=== PATIENT | female | born 1955 | race Caucasian/White ===

== ENCOUNTER 2021-09-19 19:06 | Observation (INO) | payer OTHER, SELFPAY ==
[2021-09-19] VITALS (8 sets, daily range): BP systolic 148–200; BP diastolic 86–106; PULSE 65–97; RESP 14–20; TEMP 36.6–36.7; O2SAT 95–99; BMI 32.3; BMI 33.2
--- NOTE | 2021-09-19 19:27 | XR_ITS ---
PROCEDURE INFORMATION: Exam: XR Chest Exam date and time: 09/19/2021 7:27 PM Age: 65 years old Clinical indication: Sternal or substernal pain; Prior surgery; Surgery date: 6+ months; Surgery type: Right breast lumpectomy; Additional info: Chest pain TECHNIQUE: Imaging protocol: XR of the chest. Views: 2 views. COMPARISON: No relevant prior studies available. FINDINGS: Lungs: Normal. Pleural spaces: Unremarkable. No pleural effusion. No pneumothorax. Heart/Mediastinum: Normal. Bones/joints: Multilevel thoracic spine degenerative disc space narrowing and osteophyte formation. IMPRESSION: No acute cardiopulmonary abnormality.
--- NOTE | 2021-09-19 19:27 | ECG_ITS ---
APPROVED REPORT Exam: Resting ECG HR:83 bpm ECG Measurements Heart Rate 83 AXES NJ 157 P 50 QRSd 98 QRS 22 QT 364 T 56 QTc 404 Conclusion SINUS RHYTHM NORMAL ECG UNCONFIRMED REPORT Electronically signed by : Jerrod Sands MD 09/22/2021 21:09:23
[2021-09-19 19:35] LABS: Basophils # 0.1 K/mm3 (0-0.2); Basophils % 1.8 % (0.1-2.0); Eosinophils # 0.1 K/mm3 (0.0-0.4); Eosinophils % 0.9 % (0.1-12.0); Hematocrit 47.4 % (37.0-47.0); Hemoglobin 14.9 g/dL (12.2-16.2); Lymphocytes # 2.1 K/mm3 (0.7-4.5); Lymphocytes % 37.3 % (10-50); Mean Corpuscular HGB Conc 31.5 g/dL (31.8-35.4); Mean Corpuscular Hemoglobin 31.7 pg (27.0-31.2); Mean Corpuscular Volume 100.6 fl (81-99); Mean Platelet Volume 8.3 fl (7.4-10.4); Monocytes # 0.3 K/mm3 (0.1-1.0); Monocytes % 5.2 % (1.7-9.3); Neutrophils # 3.1 K/mm3 (1.8-7.8); Neutrophils % 54.8 % (37.0-80.0); Platelet Count 246 K/mm3 (142-424); Red Blood Count 4.71 M/mm3 (4.20-5.40); Red Cell Distribution Width 13.1 % (11.5-17.5); White Blood Count 5.7 K/mm3 (4.8-10.8)
[2021-09-19 19:47] LABS: Alanine Aminotransferase 26 U/L (12-78); Albumin Level 4.7 g/dl (3.5-5.0); Alkaline Phosphatase 133 U/L (38-126); Aspartate Amino Transferase 32 U/L (14-36); Bilirubin,Direct 0.2 mg/dl (0.0-0.4); Bilirubin,Indirect 0.2 mg/dL (0.0-0.9); Bilirubin,Total 0.4 mg/dl (0.2-1.3); Bilirubin,Unconjugated 0.2 mg/dL (0.0-1.1); Blood Urea Nitrogen 28 mg/dl (7-17); Calcium 9.4 mg/dl (8.4-10.2); Carbon Dioxide 27 mmol/L (22.0-30.0); Chloride 105 mmol/L (98-107); Creatinine Clearance Estimated 72 mL/min (50-200); Estimated Glomerular Filt Rate 101 ml/min (>60); GFR (African American) 122 ML/MIN (>60); Glucose 116 mg/dl (74-100); Sodium 141 mmol/L (136-145); Total Protein,Serum 7.4 g/dl (6.3-8.2)
[2021-09-19 19:52] LABS: C-Reactive Protein 2.7 mg/L (0-4)
[2021-09-19 20:02] LABS: NT Pro Brain Natriuretic Pep. 53.7 pg/mL (0-125)
[2021-09-19 20:05] LABS: Erythrocyte Sedimentation Rate 10 mm/hr (0-30)
[2021-09-19 20:07] LABS: Procalcitonin < 0.030 ng/mL (0.0-2.0); Troponin I < 0.01 ng/ml (0.00-0.034)
--- NOTE | 2021-09-19 20:11 | HMH.EDCP ---
ED Disposition Clinical Impression: Hypertensive emergency, Obesity (BMI 30-39.9) Chest pain Qualifiers: Chest pain type: other chest pain Qualified Code(s): R07.89 - Other chest pain Disposition: Admitted As Inpatient Condition on Discharge: Good Referrals: Provider,Referral, [Primary Care Provider] - - Critical Care Critical Care Time: No Attestation: On 09/19/21, the high probability of a clinically significant, sudden or life threatening deterioration of the following system(s) required my full and direct attention, intervention and personal management. The time I documented below is in addition to time spent performing reported procedures but includes the following listed in this critical care notation. Medical Decision Making - Medical Records Medical records reviewed: Yes: I reviewed the patient's medical records. - Toribio Inquiry Pt receiving controlled substance: No Vital Signs: 09/19/21 19:13 Temperature 98.1 F Temperature Source Oral Pulse Rate [Right Radial] 89 Respiratory Rate 20 Blood Pressure [Right Arm] 200/106 H Blood Pressure Mean [Right Arm] 137 Blood Pressure Source [Right Arm] Manual Cuff/ Auscultation 02 Sat by Pulse Oximetry 98 Oxygen Delivery Method Room Air - Lab Data Lab results reviewed: Yes: I reviewed the patient's lab results. Lab Results 09/19/21 19:23: WBC 5.7, RBC 4.71, Hgb 14.9, Hct 47.4 H, MCV 100.6 H, MCH 31.7 H, MCHC 31.5 L, RDW 13.1, Plt Count 246, MPV 8.3, Neut % (Auto) 54.8, Lymph % (Auto) 37.3, [place] % (Auto) 5.2, Eos % (Auto) 0.9, Baso % (Auto) 1.8, Neut # (Auto) 3.1, Lymph # (Auto) 2.1, [place] # (Auto) 0.3, Eos # (Auto) 0.1, Baso # (Auto) 0.1, ESR 10 09/19/21 19:23: Sodium 141, Potassium 4.0, Chloride 105, Carbon Dioxide 27, Anion Gap 13.0, BUN 28 H, Creatinine 0.60, Estimated Creat Clear 72, Estimated GFR 101, Est GFR ( Amer) 122, Glucose 116 H, Calcium 9.4, Total Bilirubin 0.4, Direct Bilirubin 0.2, Conjugated Bilirubin 0.0, Indirect Bilirubin 0.2, Unconjugated Bilirubin 0.2, AST 32, ALT 26, Alkaline Phosphatase 133 H, Troponin I < 0.01, C-Reactive Protein 2.7, NT-Pro-B Natriuret Pep 53.7, Total Protein 7.4, Albumin 4.7, Procalcitonin < 0.030 09/19/21 19:27: Magnesium 2.0 Result diagrams: 09/19/21 19:23 09/19/21 19:23 Orders (Tests/Meds): ED MEDICATIONS Discontinued Medications Generic Name Dose Route Start Last Admin Trade Name Rylee PRN Reason Stop Dose Admin Aspirin 324 mg 09/19/21 19:26 09/19/21 19:26 Aspirin 81mg Chewable Tablet PO 09/19/21 19:27 324 mg ONCE ONE Administration Clonidine HCl 0.1 mg 09/19/21 20:18 09/19/21 20:19 Clonidine 0.1mg Tablet PO 09/19/21 20:19 0.1 mg ONCE ONE Administration Nitroglycerin 0.4 mg 09/19/21 19:18 09/19/21 19:18 Nitroglycerin 0.4mg Sl Tablet SL 09/19/21 19:19 0.4 mg ONCE ONE Administration ORDERS Category Date Time Status XR chest 2V Stat Exams 09/19/21 19:27 Taken Rapid PCR Covid and Flu A/B Stat Lab 09/19/21 20:20 Ordered Troponin I Q3H Lab 09/19/21 22:30 Ordered Troponin I Q3H Lab 09/20/21 01:30 Ordered - Radiology Data #1 Image(s): Chest Image Reviewed: Yes I have reviewed radiologist's interpretation Preliminary Findings: Normal/NAD - ECG Data Tracing #1 Normal Sinus Rhythm: Yes Ischemic changes: non-specific ST-T wave changes - Physician Consults Physician Consulted: radha Reason -: Admission Chest Pain HPI - General Chief Complaint: Chest Pain Stated Complaint: Chest Pain Time Seen by Provider: 09/19/21 20:00 Mode of Arrival: Ambulatory Source of Information: Patient, Medical Record Limitations: No Limitations Description of Symptoms (Recalled from ER Triage Doc. by RN): Pt reports intermittent left shoulder pain for a week. This moring she was awaken at 3am with chest and jaw pain. She took a clonidine with no relief. She says the pain is a dull, fullness . She rates her pain a 6 out of 10. She says he is
[2021-09-19 20:29] LABS: Coronavirus 19, PCR Not Detected (NotDetected); Influenza A, PCR Not Detected (NotDetected); Influenza B, PCR Not Detected (NotDetected)
[2021-09-19 20:51] LABS: Cholesterol 288 mg/dl (140-200); HDL Cholesterol 97 mg/dl (40-60); Triglycerides 152 mg/dl (30-150); VLDL Cholesterol 30 mg/dL (0-40)
[2021-09-19 21:02] LABS: Direct LDL Cholesterol 142.25 mg/dL (100-129); NT Pro Brain Natriuretic Pep. 53.8 pg/mL (0-125)
--- NOTE | 2021-09-19 22:47 | PC.NURSE ---
Report called to GAIL Olsen at this time
[2021-09-19 22:52] LABS: Troponin I < 0.01 ng/ml (0.00-0.034)
--- NOTE | 2021-09-19 23:15 | PC.NURSE ---
PT ARRIVED TO FLOOR VIA W/C FROM ED WITH STAFF @ [id number]
[2021-09-20] VITALS: PULSE 60
[2021-09-20 01:37] LABS: Troponin I 0.01 ng/ml (0.00-0.034)
[2021-09-20 04:00] VITALS: BP 128/67; PULSE 60; PULSE 64; RESP 21; TEMP 36.6; O2SAT 97
[2021-09-20 06:41] LABS: Eosinophils # 0.1 K/mm3 (0.0-0.4); Mean Corpuscular Volume 102.6 fl (81-99); Monocytes # 0.3 K/mm3 (0.1-1.0)
--- NOTE | 2021-09-20 06:53 | PC.NURSE ---
Pt admitted for chest/shoulder/jaw pain. Per pt, she has been having intermittent shoulder pain for 3 weeks. Pain woke her up the morning of 09/19 at 0300 in the AM. Pain began to radiate to chest and jaw. Pts serial troponins have been negative. Pt c/o aching in her chest when arrived to floor. Nitro paste in place on R chest. No changes in EKG monitoring. No other accompanying symptoms or radiation of pain. Medicated per OCT, no complaints of pain since. Pt has been greater than 95% on RA. VSS. Pt has slept well this shift and has been NPO since midnight. Cardiology consult for this AM.
[2021-09-20 06:58] LABS: Basophils # 0.1 K/mm3 (0-0.2); Basophils % 1.7 % (0.1-2.0); Hematocrit 40.6 % (37.0-47.0); Mean Corpuscular HGB Conc 31.5 g/dL (31.8-35.4); Mean Corpuscular Hemoglobin 32.3 pg (27.0-31.2); Monocytes % 6.8 % (1.7-9.3); Neutrophils # 1.9 K/mm3 (1.8-7.8); Neutrophils % 44.4 % (37.0-80.0); Platelet Count 219 K/mm3 (142-424); Red Blood Count 3.95 M/mm3 (4.20-5.40); Red Cell Distribution Width 13.1 % (11.5-17.5); White Blood Count 4.4 K/mm3 (4.8-10.8)
[2021-09-20 07:01] LABS: Chloride 110 mmol/L (98-107); Sodium 137 mmol/L (136-145)
[2021-09-20 07:04] LABS: Blood Urea Nitrogen 20 mg/dl (7-17); Creatinine Clearance Estimated 73 mL/min (50-200); Estimated Glomerular Filt Rate 101 ml/min (>60); GFR (African American) 122 ML/MIN (>60)
[2021-09-20 07:05] LABS: Calcium 7.7 mg/dl (8.4-10.2); Carbon Dioxide 26 mmol/L (22.0-30.0); Glucose 98 mg/dl (74-100); Magnesium 2.1 mg/dl (1.6-2.3)
--- NOTE | 2021-09-20 07:15 | P.CONPHA_ITS ---
[facility] VTE Monitoring - Patient Demographics Admission date: 09/19/21 Report Date: 09/20/21 Time: 07:15 Allergies/Adverse Reactions: Patient Allergies epinephrine Adverse Reaction (Verified 08/12/21 13:16) High Blood Pressure hydralazine Adverse Reaction (Verified 09/20/21 01:38) Palpitations Height: 1.57 m Weight: 81.873 kg Patient Problems: Current Active Problems Chest pain (Acute) Hypertensive emergency (Acute) Obesity (BMI 30-39.9) (Acute) - VTE Risk Labs: VTE Related Lab Results Hgb 14.9 g/dL (12.2-16.2) 09/19/21 19:23 Hct 47.4 % (37.0-47.0) H 09/19/21 19:23 Plt Count 246 K/mm3 (142-424) 09/19/21 19:23 BUN 20 mg/dl (7-17) H D 09/20/21 05:54 Creatinine 0.60 mg/dl (0.52-1.04) 09/20/21 05:54 Estimated Creat Clear 73 mL/min (50-200) 09/20/21 05:54 VTE Score: 4 VTE Risk Level: Low Risk - Prophylaxis VTE Prophylaxis Ordered?: Yes Types of VTE Prophylaxis: TEDS Knee High Location of Applied Device: Bilateral Lower Extremeties
[2021-09-20 07:25] LABS: Hemoglobin 12.8 g/dL (12.2-16.2)
[2021-09-20 08:00] VITALS: BP 150/83; PULSE 70; PULSE 72; RESP 18; TEMP 36.7; O2SAT 95
--- NOTE | 2021-09-20 08:00 | CA_ITS ---
APPROVED REPORT EXAM: Comprehensive 2D, Doppler, and color-flow Echocardiogram Dot Compliance Specialist: BARRY Berry, RVS Ht: 5 ft 2 in Wt: 177lbs BSA: 1.82 BP: 128/67 mmHg Indications: CP,HTN,ATYPICAL CP/JAW PAIN Echo Enhancing Agent Comments: Poor acoustic windows throughout exam 2D Dimensions IVSd 1.00 cm LVEF (Visual) 73.10 % PWd 0.91 cm LA Volume 63.90 mL LVDd 5.29 cm LA Volume Index 35.30 mL/m2 (M/F) 16-34 LVDs 3.04 cm Left Atrium 2.90 cm LVOT 1.95 cm (M/F) 1.5-2.5 M-Mode Dimensions LA Diam 3.39 cm (1.9-4.0) LVDd 5.47 cm (3.5-5.7) Ao Diam 3.13 cm (2.0-3.7) LVDs 3.15 cm (3.5-5.7) EF (Teich) 72.90% EPSs 0.30 cm FS 42.40% EDV (Teich) 145.60 mL TAPSE 2.81 (<1.7) ESV (Teich) 39.40 mL LV Diastology E Decel Time 273.00 (160-240 msec) E/A Ratio 0.80 MED E' 6.60 (< 7 cm/sec) MED A' 14.50 cm/s E'/MED E' Ratio 10.18 (>14) LAT E' 7.50 (<10 cm/sec) LAT A' 12.30 cm/s E/LAT E' Ratio 8.96 (>14) Aortic Valve LVOT Max 121.00 (70-110 cm/s) LVOT VTI 30.12 cm AoV Peak Young. 146.00 (50-130 cm/s) AO Peak GR. 8.60 mmHg AO Mean GR. 4.80 (<5 mmHg) AO VTI 35.65 (18-25 cm) IRAJ (VTI) 2.52 (2.5-4.5 cm2) Mitral Valve MV A Velocity 84.00 (40-130 cm/s) E/A Ratio 0.80 MV Decel. Time 273.00 (160-240 ms) Pulmonary Valve PV Peak Velocity 74.00 (50-150 cm/s) Tricuspid Valve TR P. Velocity 18.00 cm/s Left Ventricle Left atrium is mildly enlarged, left ventricle is normal size, mild concentric left ventricular hypertrophy, visually estimated ejection fraction 55% with no regional wall motion abnormality, grade 1 diastolic dysfunction seen without tissue Doppler evidence of raise left atrial pressure. Right Ventricle Right atrium and right ventricle mildly enlarged with normal contractility. Aortic Valve Aortic valve is minimally thickened and fibrosed, there is no aortic stenosis or aortic insufficiency. Mitral Valve Mitral valve grossly normal, there is trace mitral regurgitation. Tricuspid Valve Tricuspid valve grossly normal, there is trace tricuspid regurgitation, tricuspid regurgitation jet velocity is inadequate for calculation of the right ventricular systolic pressure. Pulmonic Valve Pulmonic valve is poorly visualized. Aortic root is normal size. Great Vessels Aortic root is normal size. Inferior vena cava is poorly visualized. Pericardium No significant pericardial effusion noted. Conclusion #1. Mild biatrial enlargement, normal left ventricular size, mild concentric left ventricular hypertrophy, visually estimated ejection fraction 55% with no regional wall motion abnormality, grade 1 diastolic dysfunction seen without tissue Doppler evidence of raise left atrial pressure. #2. Trace mitral and tricuspid regurgitation. #3. No significant pericardial effusion. #4. Inferior vena cava is poorly visualized. Electronically signed by : Tj Edwards MD 09/20/2021 17:00:04
--- NOTE | 2021-09-20 08:10 | PC.NURSE ---
notified cardiology of consult
--- NOTE | 2021-09-20 08:40 | HMH.HP ---
*Admission Date: 09/19/21 <Maile Obrien - 09/20/21 08:48> *Chief complaint: Chest pain with shortness of breath <Maile Obrien - 09/20/21 08:48> *History of present illness: Pt reports intermittent left shoulder pain for a week. This moring she was awaken at 3am with chest and jaw pain. She took a clonidine with no relief. She says the pain is a dull, fullness . She rates her pain a 6 out of 10. She says he is somewhat SOA. She denies N/V/D, cough, dizziness, weakness, fevers, or diaphoresis. Via above per ER documentation. History of present illness: This is a 65-year-old female who presented to the emergency department with complaints of chest pain. The patient reports that she woke up at 3 AM on the morning of admission with chest pain and jaw pain. She states that this is a dull full sensation in the center of her chest and it radiates to her jaw. She also reports having intermittent left shoulder pain for approximately a week prior to admission. She states that her chest pain is a 6 out of 10 in intensity. She is short of breath with the chest pain and the shortness of breath wakes her from her sleep. She also has some nausea with her chest pain. She denies any diaphoresis. The patient states that her symptoms started approximately 2 to 3 weeks ago. She also reports having a malignantly elevated blood pressure for quite some time. The patient states that she has been on multiple medications which caused side effects and nothing is really been helping to control her blood pressure. She is currently taking clonidine for her blood pressure. She does report having a heart cath approximately 8 to 10 years ago that she reports was normal. The above per cardiology. In the emergency room on admission blood pressure was 200/106. She was given 324 mg of aspirin, 0.1 mg of clonidine, and nitroglycerin sublingually. Troponin I's have been negative x3, normal electrolytes, and BUN of 28 and creatinine 0.6. Cholesterol numbers show triglycerides of 152, total cholesterol 288, LDL of 142.25, and HDL of 97. Chest x-ray showed no acute cardiopulmonary abnormality. Echo results are pending. She was then admitted with a cardiology consult. This a.m. patient is comfortable. She has been sleeping. She states her chest is not hurting. <Maile Obrien 09/20/21 15:06> [facility] History Medical History: Reports:: Cancer (BREAST), Congestive Heart Failure (DURING ), Hypertension, Kidney Stones, Palpitations Denies:: Diabetes Mellitus Type 1, Diabetes Mellitus Type 2, MRSA <MicahMaile 09/20/21 08:48> *Have you ever received a pneumonia vaccine?: No <Maile Obrien 09/20/21 08:48> *Have you received a flu vaccine this season?: No <Obrien,Maile 09/20/21 08:48> Other Medical History: Reports: Arthritis, Cataracts, Chemotherapy (2013), Radiation Therapy (2013), Other (Chest Pain ) <Maile Obrien 09/20/21 08:48> Laterality Cases: Left: Cataract, Right: Lumpectomy <MicahMaile 09/20/21 08:48> Other Surgeries: Yes: Cancer Surgery, Cardiac Catheterization, Cholecystectomy, Other (oophorectomy) <Maile Obrien 09/20/21 08:48> Amputation: No <Maile Obrien 09/20/21 08:48> Fractures: Yes (left elbow 2 times) <Maile Obrien 09/20/21 08:48> - *Social History Last grade of school completed: Advanced degree <MicahMaile 09/20/21 08:48> Smoking Status: Never smoker <Maile Obrien 09/20/21 08:48> Alcohol Intake: never <Maile Obrien 09/20/21 08:48> *Occupational Status:: disabled <Maile Obrien 09/20/21 08:48> Housing: house <Maile Obrien 09/20/21 08:48> Household Members: significant other <Maile Obrien 09/20/21 08:48> *Travel in the last 8 weeks: None <Maile Obrien 09/20/21 08:48> Family Hx:: Cancer, Diabetes <Maile Obrien 09/20/21 08:48> Review of Systems - Constitutional Reports fatigue, Reports lack of energy <Maile Obrien 09/20/21 08:48> - Eyes Denies change in vision <MicahKa
--- NOTE | 2021-09-20 09:08 | HMH.PHAINT ---
Home med rec completed. Verified via home pharmacy list and pt.
--- NOTE | 2021-09-20 09:54 | NM_ITS ---
APPROVED REPORT Exam: Nuclear Stress Test Indication: Chest pain, SOB, HTN, High cholesterol Patient Location: Inpatient Stress Tech: Sharon Martin [place] Tech:Elizabeth Baltazar, ARRT, RT (R)(N) Ht: 5 ft 2 in Wt: 177 lbs Bra Size: 36DD HR: 79 bpm BP: 166/88 mmHg BSA: 1.82 m2 BMI: 32.3 History: Chest pain, SOB, HTN, High cholesterol Procedure: Patient exercised on Amari protocol 6:30 minutes and sec, resting heart rate 79 bpm, resting blood pressure 166/88 mmHg, with exercise maximum heart rate achived was 155 bpm which is 99 % of the maximum predicted heart rate and blood pressure was 220/108 mmHg. Test was stopped due to SOA. Patient denied any complaint of chest pain. Patient has poor exercise capacity, achieved 4.6 METs of workload on treadmill, the blood pressure response to exercise was Hypertensive. Electrocardiogram Resting electrocardiogram shows sinus rhythm, with exercise there is less than 1.[address] segment depression noted from the baseline EKG. The EKG portion of the exercise Myoview is negative for ischemia. Cardiac Stress and Resting SPECT Images: Cardiac Stress and Resting SPECT images were obtained using technetium 99m Myoview 31.3 mCi stress and 9.72 mCi at rest. Gated SPECT for analysis of segmental wall motion and calculation of the ejection fraction also done. Cardiac stress and resting SPECT images show fixed defect of the apex with likely secondary to myocardial scarring or soft tissue attenuation is difficult to ascertain from the study due to patient's body habitus, however there is transient ischemic dilatation of the left ventricle seen, right ventricle is mildly enlarged with normal contractility, computer derived ejection fraction is 63% with mild apical wall hypokinesis. Conclusion: 1. The EKG portion of the exercise Myoview is negative for ischemia, patient has poor exercise capacity achieved 4.6 METs of workload on treadmill, the blood pressure response to exercise was hypertensive, test was stopped due to shortness of breath patient complained of chest pain after exercise. 2. A fixed defect of the apex seen with transient ischemic dilatation of the left ventricle is likely secondary to myocardial scarring possibility of soft tissue attenuation cannot be excluded, computer derived ejection fraction 63% with mild apical wall hypokinesis. 3. The study is technically limited due to patient's body habitus but is likely abnormal. Electronically signed by : Tj Edwards MD 09/21/2021 19:45:50
--- NOTE | 2021-09-20 09:56 | CA_ITS ---
FINAL REPORT TECHNIQUE: Grayscale, color Doppler and duplex Doppler ultrasound of the kidneys, aorta and renal arteries was performed. Multiple velocities were measured. CLINICAL HISTORY: malignant htn, Obesity, CP FINDINGS: Right kidney: 11.5 cm. No evidence of hydronephrosis or mass. Right intrarenal RI: 65 Right renal artery velocity: 100 cm/sec. Right RAR (Renal artery-Aortic Ratio): 1.1 Left Kidney: 11.1 cm. No evidence of hydronephrosis or mass. Left intrarenal RI: 60 Left renal artery velocity: 164 cm/sec. Left RAR (Renal Artery-Aortic Ratio): 1.8 IMPRESSION: No evidence of significant renal artery stenosis. CT angiogram or postcontrast MR angiogram would be more sensitive for evaluation of possible renal artery stenosis. Reviewed, Interpreted and Dictated by Klaus Hdez III, MD Transcribed by Pippa Reynaga Authenticated by Klaus Hdez III, MD on 09/20/2021 12:19:45 PM [facility]
--- NOTE | 2021-09-20 09:59 | HMH.CNCARD ---
History of Present Illness Consult date: 09/20/21 Requesting physician: Olayinka Worthy Consult reason: chest pain Chief complaint: chest pain History of present illness: This is a 65-year-old female who presented to the emergency department with complaints of chest pain. The patient reports that she woke up at 3 AM on the morning of admission with chest pain and jaw pain. She states that this is a dull full sensation in the center of her chest and it radiates to her jaw. She also reports having intermittent left shoulder pain for approximately a week prior to admission. She states that her chest pain is a 6 out of 10 in intensity. She is short of breath with the chest pain and the shortness of breath wakes her from her sleep. She also has some nausea with her chest pain. She denies any diaphoresis. The patient states that her symptoms started approximately 2 to 3 weeks ago. She also reports having a malignantly elevated blood pressure for quite some time. The patient states that she has been on multiple medications which caused side effects and nothing is really been helping to control her blood pressure. She is currently taking clonidine for her blood pressure. She does report having a heart cath approximately 8 to 10 years ago that she reports was normal. [facility] History I have reviewed the patient's past medical history: Yes Medical History: Reports:: Cancer (BREAST), Congestive Heart Failure (DURING ), Hypertension, Kidney Stones, Palpitations Denies:: Diabetes Mellitus Type 1, Diabetes Mellitus Type 2, MRSA *Have you ever received a pneumonia vaccine?: No *Have you received a flu vaccine this season?: No Other Medical History: Reports: Arthritis, Cataracts, Chemotherapy (2013), Radiation Therapy (2013), Other (Chest Pain ) Laterality Cases: Left: Cataract, Right: Lumpectomy Other Surgeries: Yes: Cancer Surgery, Cardiac Catheterization, Cholecystectomy, Other (oophorectomy) Amputation: No Fractures: Yes (left elbow 2 times) - *Social History Last grade of school completed: Advanced degree Smoking Status: Never smoker Alcohol Intake: never *Occupational Status:: disabled Housing: house Household Members: significant other *Travel in the last 8 weeks: None Family Hx:: Cancer, Diabetes Meds Home Medications Medication Instructions Recorded Confirmed Type alprazolam 0.5 mg tablet 0.5 mg PO TIDP PRN tab 08/12/21 09/20/21 History amlodipine 5 mg tablet 5 mg PO DAILY tab 08/12/21 09/19/21 History clonidine HCl 0.1 mg tablet 0.1 mg PO BIDP PRN tab 08/12/21 09/20/21 History zolpidem 10 mg tablet 10 mg PO HS tab 08/12/21 09/19/21 History Cholecalciferol (Vitamin D3) 5,000 iunits PO DAILY 09/20/21 09/20/21 History [Vitamin D3 1,000 Unit Cap] Hydrocodone/Acetaminophen 1 tab PO TIDP PRN 09/20/21 09/20/21 History [Hydrocodone-Acetamin 7.5-325] Magnesium 500 mg PO DAILY 09/20/21 09/20/21 History Allergies Allergy/AdvReac Type Severity Reaction Status Date / Time epinephrine AdvReac High Blood Verified 08/12/21 13:16 Pressure hydralazine AdvReac Palpitation Verified 09/20/21 01:38 s Exam Vital signs and Labs for Last 24 Hours: Temp Pulse Resp BP Pulse Ox 98.1 F 72 18 150/83 H 95 09/20/21 08:00 09/20/21 08:00 09/20/21 08:00 09/20/21 08:00 09/20/21 08:00 Laboratory Results - last 24 hr 09/19/21 19:23: WBC 5.7, RBC 4.71, Hgb 14.9, Hct 47.4 H, MCV 100.6 H, MCH 31.7 H, MCHC 31.5 L, RDW 13.1, Plt Count 246, MPV 8.3, Neut % (Auto) 54.8, Lymph % (Auto) 37.3, [place] % (Auto) 5.2, Eos % (Auto) 0.9, Baso % (Auto) 1.8, Neut # (Auto) 3.1, Lymph # (Auto) 2.1, [place] # (Auto) 0.3, Eos # (Auto) 0.1, Baso # (Auto) 0.1, ESR 10 09/19/21 19:23: Sodium 141, Potassium 4.0, Chloride 105, Carbon Dioxide 27, Anion Gap 13.0, BUN 28 H, Creatinine 0.60, Estimated Creat Clear 72, Estimated GFR 101, Est GFR ( Amer) 122, Glucose 116 H, Calcium 9.4, Total Bilirubin 0.4, Direct Bilirubin 0.2, Conjugated
[2021-09-20 10:10] VITALS: BMI 33.2
[2021-09-20 12:00] VITALS: PULSE 80
--- NOTE | 2021-09-20 14:58 | PC.NURSE ---
PT IS RESTING IN BED. NO COMPLAINTS OF DISCOMFORT. PT WAS UNABLE TO DO STRESS TEST TODAY B/C SHE HAD CARVEDILOL AT 1100. PT WILL BE NPO AFTER MIDNIGHT TONIGHT AND CARVEDILOL DOSE WILL BE HELD TONIGHT AND IN THE MORNING. LUNG SOUNDS CLEAR. ABDOMEN SOFT NON TENDER WITH ACTIVE BOWEL SOUNDS. TEDS NOTED TO BLE. AMBULATES TO THE BATHROOM. WILL CONTINUE TO MONITOR.
[2021-09-20 16:00] VITALS: BP 166/80; PULSE 65; PULSE 70; RESP 16; TEMP 36.7; O2SAT 97
[2021-09-20 20:00] VITALS: BP 163/81; PULSE 60; PULSE 74; RESP 16; TEMP 36.9; O2SAT 95
[2021-09-21] VITALS (19 sets, daily range): BP systolic 100–162; BP diastolic 62–98; PULSE 56–74; RESP 18–20; TEMP 36.5–36.8; O2SAT 94–100; BMI 33.0
--- NOTE | 2021-09-21 | CA_ITS ---
APPROVED REPORT Exam: Exercise Treadmill Technologist: Sharon Martin Ht: 5 ft 1 in Wt: 179 lbs BSA: 1.80 m2 HR: 73 bpm BP: 166/88 mmHg Indications: Chest pain, Shortness of Air Medical History Medications: Amlodipine,,,,, Alprazolam,,,,, Clonidine,,,,, Vitamin D3,,,,, Zolpidem,,,,, Magnesium,,,,, Hydrocodone/Acetaminaphen,,,,, Stress Test Details Test: Amari HR Resting HR: 79 bpm Max Heart Rate (APMHR): 156.925162 bpm Max HR Achieved: 155 bpm Target HR (85% APMHR): 132.823989 bpm % of APMHR: 99.36 Recovery HR: 82 bpm BP Resting BP: 166.0/88.0 mmHg Max BP: 220.0/108.0 mmHg Recovery BP: 168.0/99.0 mmHg ECG Resting ECG: Normal sinus rhythm, rightward axis Clinical Exercise duration: 06:30 min Highest Stage Achieved: Exercise capacity: 4.6 METs Stress ECG Conclusion Patient exercised 6:30 in Stage I of Amari Protocol. Test stopped due to shortness of air, fatigue. Symptoms: No chest or jaw pain. Arrhythmias/Ectopy: Occasional PVC ST-T Changes: 0.5-1mm of horizontal and downsloping ST depression only in lead III. Otherwise, normal ST response to exercise. Conclusion: Probably normal GXT. Myoview images reported separately. Test Summary RECOVERY 07:22 0.0 0.0 82 . 168/ 99 . . REST 15:41 0.0 0.0 79 . 166/ 88 . . Stage 1 01:00 10.0 1.7 112 . . . . Stage 1 . . . . . . . Stage held Stage 1 02:00 10.0 1.7 135 . . . . Stage 1 03:00 10.0 1.7 144 . 220/108 . . Stage 1 04:00 10.0 1.7 149 . 220/108 . . Stage 1 . . . . . . . Myoview Injected Stage 1 05:00 10.0 1.7 147 . 220/108 . . Stage 1 06:00 10.0 1.7 155 . 220/108 . . Stage 1 . . . . . . . Stage resumed Stage 1 06:30 10.0 1.7 154 . 220/108 . Stop exercise at 06:30 RECOVERY 01:00 0.0 0.0 136 . . . . RECOVERY 02:00 0.0 0.0 126 . 170/110 . . RECOVERY 03:00 0.0 0.0 115 . 170/110 . . RECOVERY 04:00 0.0 0.0 85 . 193/108 . . RECOVERY 05:00 0.0 0.0 103 . 193/108 . . RECOVERY 06:00 0.0 0.0 85 . 182/ 95 . . RECOVERY 07:00 0.0 0.0 92 . 182/ 95 . . RECOVERY 07:22 0.0 0.0 82 . 168/ 99 . . Electronically signed by : Tj Edwards MD 09/21/2021 19:29:27
--- NOTE | 2021-09-21 | IR_ITS ---
APPROVED REPORT Patient Location: Inpatient [employer]: LYNDA Escobar RT (R) PROCEDURES Left heart catheterization Left ventriculogram Selective coronary angiogram Bilateral selective renal angiography INDICATION Elevated troponin, Severe hypertension suspect renovascular hypertension with renal artery stenosis Informed consent was obtained prior to the procedure. COMPLICATIONS None Estimated Blood Loss: Less than 10 mls TECHNIQUE One percent lidocaine used to anesthetize the right anterior aspect of the wrist. The right radial artery was accessed via the Seldinger technique. A 6 Persian sheath was placed in the right radial artery. 2.5 mg of verapamil, 800 mcg of nitroglycerin, 1mg Lidocaine and 5000 U Heparin were given through the arterial sheath. The Poppa catheter was also used to perform left heart catheterization, left ventriculogram and selective coronary angiogram. The same catheter was used to perform bilateral selective renal angiography. At the end the procedure the apparatus was removed the sheath was removed good hemostasis was achieved using TR banding patient was transferred to the postop holding area in stable condition ANGIOGRAPHIC RESULTS The left main artery Normal The left anterior descending artery Has mild proximal 10% luminal irregularities. The mid segment has 10% luminal regularities and has corkscrew tortuosities The circumflex artery Nondominant with mild 10% luminal irregularities The right coronary artery Is dominant and has proximal to mid vessel 10 to 20% stenoses with distal 10% stenoses The MORA ventriculogram reveals Hyperdynamic 75% The left ventricular end-diastolic pressure 10 mmHg Right renal artery singular normal Left renal artery singular normal IMPRESSION Mild nonflow limiting coronary disease Hyperdynamic ventricle consistent with hypertensive heart disease Normal LVEDP Normal renal arteries PLAN 1. Treatment of hypertension 2. Elevated troponin most likely stems from hypertensive heart disease with demand ischemia 3. Risk factor modification Electronically signed by : Gualberto Chan MD 09/22/2021 13:14:20
--- NOTE | 2021-09-21 04:35 | PC.NURSE ---
Patient rested well thru this RN shift. No new concerns or complaints noted.
--- NOTE | 2021-09-21 10:17 | HMH.PNCARD ---
Subjective Date: 09/21/21 Time: 10:17 Principal diagnosis: angina pectoris, malignant htn Interval history: This is a 65-year-old female who presented to the emergency department complaints of chest pain. She states that she is still having a dull, full pressure sensation in the substernal aspect that is radiating to her left arm and jaw. She did undergo Myoview stress testing this morning. She states that while she was on the treadmill her blood pressure malignantly elevated again. She states that she had no symptoms while walking on the treadmill but right after the stress test was over she had recurrence of the chest pressure in the substernal aspect of her chest radiating to her left arm. She states that she is still currently having the pain while I am examining her. She denies any shortness of breath this morning but states that sometimes she does get short of breath with her chest pain. She also has some nausea at times. Her symptoms started approximately 2 to 3 weeks ago. Her blood pressure is malignantly elevated. She denies any fever, chills, vomiting, diarrhea, PND or orthopnea. Exam Vital signs and Labs for Last 24 Hours: Temp Pulse Resp BP Pulse Ox 97.7 F 61 18 136/74 96 09/21/21 04:00 09/21/21 04:00 09/21/21 04:00 09/21/21 04:00 09/21/21 04:00 I & O for Last 24 hours: Intake & Output 09/18/21 09/19/21 09/20/21 09/21/21 23:59 23:59 23:59 23:59 Intake Total 960 / 960 Output Total 400 / 400 1000 / 1000 0 / 0 Balance -400 / -400 -40 / -40 0 / 0 Weight 180 lb 8 oz 180 lb 5.41 oz 179 lb 10.828 oz Narrative: Renal duplex shows no significant renal artery stenosis bilaterally GXT Myoview stress test shows an ejection fraction of 63% and anterior apical fixed defect consistent with myocardial scarring. This is an abnormal Myoview stress test. - Constitutional no acute distress, obese - *Routine HEENT Exam Head: Present: normocephalic, atraumatic Eye: Present: EOMI, PERRL ENT: Present: mucous membranes moist - *Routine Neck Exam Present: supple, full ROM, normal carotid upstroke. Absent: JVD, carotid bruit, lymphadenopathy - *Routine Respiratory Exam Present: CTA bilaterally - *Routine Cardiovascular Exam Present: RRR, Normal S1, Normal S2. Absent: murmur - *Routine Abdominal Exam Present: soft, normoactive bowel sounds. Absent: tenderness, distended - *Routine Extremities Exam Present: full ROM, pulses intact, normal capillary refill. Absent: cyanosis, clubbing, edema - *Routine Skin Exam Present: intact, warm. Absent: erythema, rash - *Routine Neurological Exam Present: alert, oriented X3, CN II-XII intact. Absent: sensory deficit, motor deficit Progress Note: A&P (1) Angina pectoris Status: Acute (2) Hypertensive emergency Status: Acute (3) Malignant hypertension Status: Acute (4) Obesity (BMI 30-39.9) Status: Acute (5) HLD (hyperlipidemia) Status: Chronic (6) Diastolic dysfunction Status: Chronic (7) Abnormal stress test Status: Acute Assessment and Plan for All Diagnoses:: Plan: 1. The patient was mated to the hospital with complaints of chest pain. The patient is having symptoms of angina. She ruled out for an [place]. She did undergo GXT Myoview stress testing this morning. This showed anterior apical fixed defect consistent with myocardial scarring. This is an abnormal Myoview stress test. Would recommend the patient undergo left cardiac catheterization secondary to her typical angina and the abnormal stress test. 2. The patient has been educated the risk and benefits of proceeding with left cardiac catheterization. The patient verbalized understanding and is agreeable proceeding with the procedure. 3. The patient will be n.p.o. in preparation for left cardiac catheterization. 4. The patient with IV fluids and premedications prior to the procedure. 5. Following her GXT Myoview the patient did have onset of angina aga
--- NOTE | 2021-09-21 11:08 | HMH.ACPN2 ---
<Maile Obrien - Last Filed: 09/21/21 11:08> Internal Medicine - PN: Subj *Date: 09/21/21 *Time: 11:08 Interval history: Patient has just arrived to her room after completing a GXT Myoview. She states she feels well although she is having midsteral chest discomfort; she states that she has it so often that she is use to it. She also had chest pain during the night but did not tell anyone. She denies SOB and is motivated to find out the problems and plan. She reports elevated BP this AM. The following is documentation from cardiology visit this AM: Assessment and Plan for All Diagnoses:: Plan: 1. The patient was mated to the hospital with complaints of chest pain. The patient is having symptoms of angina. She ruled out for an [place]. She did undergo GXT Myoview stress testing this morning. We are currently awaiting the results. 2. Following her GXT Myoview the patient did have onset of angina again. This is in the substernal aspect of her chest and she describes it as a pressure, dull full sensation radiating to her left arm. She is requesting Nitropaste. Will order nitro paste for her chest pain. 3. Her echocardiogram shows a normal LV function and no significant valvular disease. She does have some grade 1 diastolic dysfunction. 4. Her blood pressure has improved with the new blood pressure medications but while walking on the treadmill she got malignantly hypertensive again. As mentioned above she will get Nitropaste and this will likely also improve her blood pressure. 5. Her LDL goal is less than 100. Her LDL is 142. She has been started on a statin. 6. Her renal duplex is still currently pending as well. 7. Further recommendations were made pending the patient's response to treatment. Exam Vital signs and Labs for Last 24 Hours: Temp Pulse Resp BP Pulse Ox 97.7 F 61 18 136/74 96 09/21/21 04:00 09/21/21 04:00 09/21/21 04:00 09/21/21 04:00 09/21/21 04:00 I & O for Last 24 hours: Intake & Output 09/18/21 09/19/21 09/20/21 09/21/21 11:59 11:59 11:59 11:59 Intake Total 600 / 600 360 / 360 Output Total 1400 / 1400 0 / 0 Balance -800 / -800 360 / 360 Weight 180 lb 5.41 oz 179 lb 10.828 oz - Constitutional no acute distress Comments: seems happy and comfortable; joking - *Routine Respiratory Exam Present: CTA bilaterally (A&P) - *Routine Cardiovascular Exam Present: RRR - *Routine Abdominal Exam Present: soft, normoactive bowel sounds. Absent: tenderness - *Routine Extremities Exam Present: MICHELLE stockings. Absent: edema, calf tenderness - *Routine Neurological Exam Present: alert, oriented X3 Assessment and Plan (1) Angina pectoris Status: Acute Category: Medical Code(s): I20.9 - Angina pectoris, unspecified (2) Hypertensive emergency Status: Acute Category: Medical Code(s): I16.1 - Hypertensive emergency (3) Malignant hypertension Status: Acute Category: Medical Code(s): I10 - Essential (primary) hypertension (4) Obesity (BMI 30-39.9) Status: Acute Category: Medical Code(s): E66.9 - Obesity, unspecified (5) HLD (hyperlipidemia) Status: Chronic Qualifiers: Hyperlipidemia type: mixed hyperlipidemia Qualified Code(s): E78.2 - Mixed hyperlipidemia Category: Medical Code(s): E78.5 - Hyperlipidemia, unspecified (6) Diastolic dysfunction Status: Chronic Category: Medical Code(s): I51.89 - Other ill-defined heart diseases - Assessment and plan all Dx Assessment and Plan for all problems:: results of stress test and ECHO are pending. Cardiology continues to follow. <Olayinka Worthy - Last Filed: 09/21/21 18:13> Internal Medicine - PN: Subj *Date: 09/21/21 *Time: 18:11 Exam Vital signs and Labs for Last 24 Hours: Temp Pulse Resp BP Pulse Ox 97.7 F 63 20 129/73 97 09/21/21 04:00 09/21/21 16:45 09/21/21 16:45 09/21/21 16:45 09/21/21 16:45 I & O for Last 24 hours:
--- NOTE | 2021-09-21 17:08 | PC.NURSE ---
PT IS RESTING IN BED. NO COMPLAINTS OF DISCOMFORT. ALERT AND ORIENTED X4. EATING AND DRINKING WELL. LUNG SOUNDS CLEAR. ABDOMEN SOFT/NON TENDER WITH ACTIVE BOWEL SOUNDS. AMBULATES TO THE BATHROOM. CATH VSS. WILL CONTINUE TO MONITOR.
[2021-09-22] VITALS: BP 118/57; PULSE 70; PULSE 78; RESP 18; TEMP 36.7; O2SAT 92
[2021-09-22 04:00] VITALS: BP 158/91; PULSE 60; PULSE 69; RESP 18; TEMP 36.6; O2SAT 95
[2021-09-22 05:02] VITALS: BMI 34.8
[2021-09-22 06:41] LABS: Blood Urea Nitrogen 21 mg/dl (7-17); Carbon Dioxide 25 mmol/L (22.0-30.0); Creatinine Clearance Estimated 77 mL/min (50-200); Estimated Glomerular Filt Rate 101 ml/min (>60); GFR (African American) 122 ML/MIN (>60)
[2021-09-22 06:51] LABS: Basophils % 0.6 % (0.1-2.0); Eosinophils # 0.1 K/mm3 (0.0-0.4); Eosinophils % 2.1 % (0.1-12.0); Hematocrit 43.5 % (37.0-47.0); Hemoglobin 13.7 g/dL (12.2-16.2); Lymphocytes # 1.9 K/mm3 (0.7-4.5); Lymphocytes % 39.7 % (10-50); Mean Corpuscular HGB Conc 31.5 g/dL (31.8-35.4); Mean Corpuscular Hemoglobin 31.2 pg (27.0-31.2); Mean Corpuscular Volume 99.1 fl (81-99); Mean Platelet Volume 7.9 fl (7.4-10.4); Monocytes # 0.3 K/mm3 (0.1-1.0); Monocytes % 6.8 % (1.7-9.3); Neutrophils # 2.4 K/mm3 (1.8-7.8); Neutrophils % 50.8 % (37.0-80.0); Platelet Count 215 K/mm3 (142-424); Red Blood Count 4.39 M/mm3 (4.20-5.40); Red Cell Distribution Width 12.8 % (11.5-17.5); White Blood Count 4.7 K/mm3 (4.8-10.8)
--- NOTE | 2021-09-22 07:06 | PC.NURSE ---
PATIENT REFUSED 0230 SCHEDULED DOSE OF NITRO PASTE. AT 0430 AM PATIENT RANG OUT COMPLAINING OF CHEST PRESSURE REQUESTING THE NITRO PASTE, THIS RN ADMINISTERED UNSCHEDULED
[2021-09-22 08:00] VITALS: BP 137/79; PULSE 70; PULSE 79; RESP 17; TEMP 36.6; O2SAT 99
--- NOTE | 2021-09-22 08:29 | HMH.ACPN2 ---
<Marita Dominguez - Last Filed: 09/22/21 08:29> Internal Medicine - PN: Subj *Date: 09/22/21 *Time: 08:29 Interval history: Patient states she had an episode of crushing chest pain around 3 AM and had to have some nitro. It did improve her pain but she states she cannot live on nitroglycerin. She wants to know the cause of her chest pain and elevated blood pressure. She slept well after she was given nitro and did eat breakfast this morning. Exam Vital signs and Labs for Last 24 Hours: Temp Pulse Resp BP Pulse Ox 97.9 F 79 17 137/79 99 09/22/21 08:00 09/22/21 08:00 09/22/21 08:00 09/22/21 08:00 09/22/21 08:00 Laboratory Results - last 24 hr 09/22/21 05:52: WBC 4.7 L, RBC 4.39, Hgb 13.7, Hct 43.5, MCV 99.1 H, MCH 31.2, MCHC 31.5 L, RDW 12.8, Plt Count 215, MPV 7.9, Neut % (Auto) 50.8, Lymph % (Auto) 39.7, [place] % (Auto) 6.8, Eos % (Auto) 2.1, Baso % (Auto) 0.6, Neut # (Auto) 2.4, Lymph # (Auto) 1.9, [place] # (Auto) 0.3, Eos # (Auto) 0.1, Baso # (Auto) 0.0 09/22/21 05:52: Carbon Dioxide 25, BUN 21 H, Creatinine 0.60, Estimated Creat Clear 77, Estimated GFR 101, Est GFR ( Amer) 122 I & O for Last 24 hours: Intake & Output 09/19/21 09/20/21 09/21/21 09/22/21 11:59 11:59 11:59 11:59 Intake Total 600 / 600 360 / 360 240 / 240 Output Total 1400 / 1400 0 / 0 Balance -800 / -800 360 / 360 240 / 240 Weight 180 lb 5.41 oz 179 lb 10.828 oz 189 lb 3.2 oz - Constitutional no acute distress - *Routine Respiratory Exam Present: CTA bilaterally - *Routine Cardiovascular Exam Present: RRR - *Routine Abdominal Exam Present: soft, normoactive bowel sounds. Absent: tenderness - *Routine Extremities Exam Absent: cyanosis, clubbing, edema - *Routine Skin Exam Present: warm. Absent: rash - *Routine Neurological Exam Present: alert, oriented X3 Assessment and Plan (1) Angina pectoris Status: Acute Category: Medical Code(s): I20.9 - Angina pectoris, unspecified (2) Hypertensive emergency Status: Acute Category: Medical Code(s): I16.1 - Hypertensive emergency (3) Malignant hypertension Status: Acute Category: Medical Code(s): I10 - Essential (primary) hypertension (4) Obesity (BMI 30-39.9) Status: Acute Category: Medical Code(s): E66.9 - Obesity, unspecified (5) HLD (hyperlipidemia) Status: Chronic Qualifiers: Hyperlipidemia type: mixed hyperlipidemia Qualified Code(s): E78.2 - Mixed hyperlipidemia Category: Medical Code(s): E78.5 - Hyperlipidemia, unspecified (6) Diastolic dysfunction Status: Chronic Category: Medical Code(s): I51.89 - Other ill-defined heart diseases (7) Abnormal stress test Status: Acute Category: Medical Code(s): R94.39 - Abnormal result of other cardiovascular function study - Assessment and plan all Dx Assessment and Plan for all problems:: Renal ultrasound showed no evidence of renal artery stenosis. Cardiology to follow today. <Olayinka Worthy - Last Filed: 09/22/21 20:38> Internal Medicine - PN: Subj *Date: 09/22/21 *Time: 20:36 Exam Vital signs and Labs for Last 24 Hours: Temp Pulse Resp BP Pulse Ox 97.9 F 60 17 141/93 H 99 09/22/21 08:00 09/22/21 12:00 09/22/21 08:00 09/22/21 13:15 09/22/21 08:00 Laboratory Results - last 24 hr 09/22/21 05:52: WBC 4.7 L, RBC 4.39, Hgb 13.7, Hct 43.5, MCV 99.1 H, MCH 31.2, MCHC 31.5 L, RDW 12.8, Plt Count 215, MPV 7.9, Neut % (Auto) 50.8, Lymph % (Auto) 39.7, [place] % (Auto) 6.8, Eos % (Auto) 2.1, Baso % (Auto) 0.6, Neut # (Auto) 2.4, Lymph # (Auto) 1.9, [place] # (Auto) 0.3, Eos # (Auto) 0.1, Baso # (Auto) 0.0 09/22/21 05:52: Sodium 135 L, Potassium 3.7, Chloride 108 H, Carbon Dioxide 25, Anion Gap 5.7, BUN 21 H, Creatinine 0.60, Estimated Creat Clear 77, Estimated GFR 101, Est GFR ( Amer) 122, Glucose 104 H, Calcium 8.2 L I & O for Last 24 hours: Intake & Output 09/20/21 09/21/21 09/22/21 09/23/21 11:59 11:59 1
[2021-09-22 08:35] LABS: Anion Gap 5.7 mEq/L (5-15); Chloride 108 mmol/L (98-107); Potassium 3.7 mmoL/L (3.5-5.1); Sodium 135 mmol/L (136-145)
[2021-09-22 08:38] LABS: Calcium 8.2 mg/dl (8.4-10.2); Glucose 104 mg/dl (74-100)
--- NOTE | 2021-09-22 08:59 | CT_ITS ---
FINAL REPORT CLINICAL HISTORY: soa, chest pain FINDINGS: Thin section axial CT images of the chest were obtained with contrast. 3D reformatted images were also obtained. This study was performed with techniques to keep radiation doses as low as reasonably achievable (ALARA). Individualized dose reduction techniques using automated exposure control or adjustment of mA and/or kV according to the patient''s size were employed. There is no evidence of pulmonary embolism. There is no evidence of thoracic aortic aneurysm or dissection. There is no evidence of mediastinal or hilar mass or adenopathy. There is no evidence of pulmonary mass or nodule. No localized inflammatory process is seen within the lungs. There are postoperative changes in the right axilla. A small lipoma is seen in the lower right thorax wall. The patient is status post cholecystectomy. IMPRESSION: No evidence of pulmonary embolism. No mass or localized inflammatory process. Reviewed, Interpreted and Dictated by Klaus Hdez III, MD Transcribed by Maile Cardenas Authenticated by Klaus Hdez III, MD on 09/22/2021 11:38:55 AM [facility][1]
--- NOTE | 2021-09-22 09:03 | HMH.PNCARD ---
Subjective Date: 09/22/21 Time: 08:30 Principal diagnosis: angina pectoris, malignant htn Interval history: This is a 65-year-old white female who presented to the emergency department with complaints of chest pain. She underwent left cardiac catheterization yesterday as well as renal angiogram. The patient has normal coronary arteries and normal renal arteries. She does report that she woke up around 3 AM this morning with crushing chest pain radiating to her left arm. It was associated with shortness of breath. The patient was given some nitro and her symptoms resolved. She states that she has had no chest pain since that time. Her blood pressure was not evaluated during this episode. She denies any fever, chills, nausea, vomiting, diarrhea, PND or orthopnea. Exam Vital signs and Labs for Last 24 Hours: Temp Pulse Resp BP Pulse Ox 97.9 F 79 17 137/79 99 09/22/21 08:00 09/22/21 08:00 09/22/21 08:00 09/22/21 08:00 09/22/21 08:00 Laboratory Results - last 24 hr 09/22/21 05:52: WBC 4.7 L, RBC 4.39, Hgb 13.7, Hct 43.5, MCV 99.1 H, MCH 31.2, MCHC 31.5 L, RDW 12.8, Plt Count 215, MPV 7.9, Neut % (Auto) 50.8, Lymph % (Auto) 39.7, [place] % (Auto) 6.8, Eos % (Auto) 2.1, Baso % (Auto) 0.6, Neut # (Auto) 2.4, Lymph # (Auto) 1.9, [place] # (Auto) 0.3, Eos # (Auto) 0.1, Baso # (Auto) 0.0 09/22/21 05:52: Sodium 135 L, Potassium 3.7, Chloride 108 H, Carbon Dioxide 25, Anion Gap 5.7, BUN 21 H, Creatinine 0.60, Estimated Creat Clear 77, Estimated GFR 101, Est GFR ( Amer) 122, Glucose 104 H, Calcium 8.2 L I & O for Last 24 hours: Intake & Output 09/19/21 09/20/21 09/21/21 09/22/21 23:59 23:59 23:59 23:59 Intake Total 960 / 960 240 / 240 360 / 360 Output Total 400 / 400 1000 / 1000 0 / 0 Balance -400 / -400 -40 / -40 240 / 240 360 / 360 Weight 180 lb 8 oz 180 lb 5.41 oz 179 lb 10.828 oz 189 lb 3.2 oz - Constitutional no acute distress, obese - *Routine HEENT Exam Head: Present: normocephalic, atraumatic Eye: Present: EOMI, PERRL ENT: Present: mucous membranes moist - *Routine Neck Exam Present: supple, full ROM, normal carotid upstroke. Absent: JVD, carotid bruit, lymphadenopathy - *Routine Respiratory Exam Present: CTA bilaterally - *Routine Cardiovascular Exam Present: RRR, Normal S1, Normal S2. Absent: murmur - *Routine Abdominal Exam Present: soft, normoactive bowel sounds. Absent: tenderness, distended - *Routine Extremities Exam Present: full ROM, pulses intact, normal capillary refill. Absent: cyanosis, clubbing, edema - *Routine Skin Exam Present: intact, warm. Absent: erythema, rash - *Routine Neurological Exam Present: alert, oriented X3, CN II-XII intact. Absent: sensory deficit, motor deficit Progress Note: A&P (1) Angina pectoris Status: Acute (2) Hypertensive emergency Status: Acute (3) Malignant hypertension Status: Acute (4) Obesity (BMI 30-39.9) Status: Acute (5) HLD (hyperlipidemia) Status: Chronic (6) Diastolic dysfunction Status: Chronic (7) Abnormal stress test Status: Acute (8) SOB (shortness of breath) Status: Acute Assessment and Plan for All Diagnoses:: Plan: 1. The patient was admitted to the hospital with complaints of chest pain. She underwent Myoview stress testing which was abnormal and underwent left cardiac catheterization yesterday which showed normal coronary arteries. She also had a renal angiogram which showed normal renal arteries. 2. The patient states that she woke up at around 3 AM this morning with crushing chest pain radiating into her left arm. She was given some nitroglycerin and her symptoms improved. We will get a CTA of her chest today to rule out a PE as the cause of her chest pain and shortness of breath. 3. Her blood pressure is slightly elevated this morning but has been under much better control. We will increase her irbesartan to 300 mg p.o. daily. 4. Her LDL goal is less than 100. Her LDL
--- NOTE | 2021-09-22 09:13 | PC.NURSE ---
Spoke with marisol in RAD about stat CTA
--- NOTE | 2021-09-22 09:14 | PC.NURSE ---
Spoke with Laurent Reagan to reschedule nitro paste
--- NOTE | 2021-09-22 09:30 | HMH.ITSTN ---
spoke to harman about iv location for PE study she is to call back when new IV is started
--- NOTE | 2021-09-22 10:14 | PC.NURSE ---
Pt is back from RAD
[2021-09-22 12:00] VITALS: PULSE 60
--- NOTE | 2021-09-22 13:03 | PC.NURSE ---
Took out iv's, and [facility] is at bed side going over medications.
--- NOTE | 2021-09-22 13:08 | HMH.PHAINT ---
PHARMACY DISCHARGE COUNSELING COMPLETED. NEW MEDICATIONS DISCUSSED WITH PT AND . BOTH VERY PLEASANT AND VERBALIZED UNDERSTANDING
[2021-09-22 13:15] VITALS: BP 141/93
--- NOTE | 2021-09-22 21:59 | HMH.DCSUM ---
General - General Admission date:: 09/19/21 <Olayinka Worthy - 10/27/21 22:08> 09/19/21 <Marita Dominguez - 09/22/21 22:07> Discharge date: 09/22/21 <Marita Dominguez - 09/22/21 22:07> HPI HPI: Pt reports intermittent left shoulder pain for a week. This moring she was awaken at 3am with chest and jaw pain. She took a clonidine with no relief. She says the pain is a dull, fullness . She rates her pain a 6 out of 10. She says he is somewhat SOA. She denies N/V/D, cough, dizziness, weakness, fevers, or diaphoresis. Via above per ER documentation. History of present illness: This is a 65-year-old female who presented to the emergency department with complaints of chest pain. The patient reports that she woke up at 3 AM on the morning of admission with chest pain and jaw pain. She states that this is a dull full sensation in the center of her chest and it radiates to her jaw. She also reports having intermittent left shoulder pain for approximately a week prior to admission. She states that her chest pain is a 6 out of 10 in intensity. She is short of breath with the chest pain and the shortness of breath wakes her from her sleep. She also has some nausea with her chest pain. She denies any diaphoresis. The patient states that her symptoms started approximately 2 to 3 weeks ago. She also reports having a malignantly elevated blood pressure for quite some time. The patient states that she has been on multiple medications which caused side effects and nothing is really been helping to control her blood pressure. She is currently taking clonidine for her blood pressure. She does report having a heart cath approximately 8 to 10 years ago that she reports was normal. The above per cardiology. In the emergency room on admission blood pressure was 200/106. She was given 324 mg of aspirin, 0.1 mg of clonidine, and nitroglycerin sublingually. Troponin I's have been negative x3, normal electrolytes, and BUN of 28 and creatinine 0.6. Cholesterol numbers show triglycerides of 152, total cholesterol 288, LDL of 142.25, and HDL of 97. Chest x-ray showed no acute cardiopulmonary abnormality. Echo results are pending. She was then admitted with a cardiology consult. This a.m. patient is comfortable. She has been sleeping. She states her chest is not hurting. <Marita Dominguez - 09/22/21 22:07> Hospital Course Hospital Course: The patient was seen by cardiology and they felt she had ruled out for an [place]. They set her up for stress test to rule out ischemia. They discussed doing a Lexiscan Myoview, but the patient wanted to actually walk on the treadmill. They also ordered an echo and a renal duplex due to her elevated blood pressure. They started her on Coreg 6.25 mg twice daily, hydrochlorothiazide 12.5 mg daily, and irbesartan 150 mg daily. She continued with chest pain that was relieved with nitro. Her renal duplex showed no significant renal artery stenosis, her stress test showed an EF of 63% and an anterior apical fixed defect consistent with myocardial scarring. This was an abnormal Myoview stress test and cardiology recommended the patient undergo a left heart cath. Her echo showed a normal left ventricular function with no significant valvular disease. She did have grade 1 diastolic dysfunction. Her blood pressure improved with the new medications, but while walking on the treadmill, she got malignantly hypertensive again. She was started on Nitropaste and it was felt this would improve her blood pressure. Dr. Chan wanted to proceed with a renal angiogram at the same time as her left heart cath given her malignantly elevated blood pressure with exercise. A CTA was also ordered of the chest to rule out a PE. The CTA showed no evidence of PE. Her heart cath showed mild nonflow limiting coronary disease with a hyperdynamic ventricle consistent with hypertensive heart disease. She had a normal LVEDP and normal renal arteries. I
== END 2021-09-22 13:43 | disposition home or self-care (01) ==
LOC: ER 20:42 → 2ND 23:01
PROVIDERS: Internal Medicine; Admitting Provider Family Medicine; Emergency Provider Emergency Medicine; Visit Provider Family Medicine
DX: R07.9 Chest pain, unspecified (principal); I70.1 Atherosclerosis of renal artery; I20.8 Other forms of angina pectoris; I16.1 Hypertensive emergency; R94.39 Abnormal result of other cardiovascular function study; E78.2 Mixed hyperlipidemia; Z79.899 Other long term (current) drug therapy
CPT/HCPCS: 36252; 36415; 71046; 71275; 78452; 80048; 80061; 80076; 83735; 83880; 84145; 84484; 85025; 85651; 86140; 93005; 93017; 93306; 93458; 93976; 96374; 99152; 99284; A9502; C1725; C1769; C9803; G0378; J1644; Q9967; U0003; U0005

== ENCOUNTER 2022-06-12 15:50 | Emergency (ER) | payer OTHER, MEDICARE, SELFPAY ==
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
[2022-06-12 16:09] VITALS: BP 207/104; PULSE 63; RESP 20; TEMP 36.8; O2SAT 96; BMI 31.6
--- NOTE | 2022-06-12 16:09 | PC.NURSE ---
Pt's at bedside at this time.
--- NOTE | 2022-06-12 16:10 | PC.NURSE ---
rad at bedside
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
[2022-06-12 16:22] VITALS: BP 175/94; PULSE 18; RESP 20; O2SAT 97
[2022-06-12 16:35] LABS: Basophils # 0.1 K/mm3 (0-0.2); Eosinophils # 0.1 K/mm3 (0.0-0.4); Eosinophils % 1.2 % (0.1-12.0); Hemoglobin 13.3 g/dL (12.2-16.2); Lymphocytes # 2.6 K/mm3 (0.7-4.5); Lymphocytes % 44.6 % (10-50); Mean Corpuscular HGB Conc 33.2 g/dL (31.8-35.4); Mean Corpuscular Hemoglobin 33.3 pg (27.0-31.2); Mean Corpuscular Volume 100.3 fl (81-99); Monocytes # 0.3 K/mm3 (0.1-1.0); Monocytes % 5.6 % (1.7-9.3); Neutrophils # 2.8 K/mm3 (1.8-7.8); Neutrophils % 47.7 % (37.0-80.0); Platelet Count 253 K/mm3 (142-424); Red Blood Count 3.99 M/mm3 (4.20-5.40); Red Cell Distribution Width 13.3 % (11.5-17.5); White Blood Count 5.9 K/mm3 (4.8-10.8)
[2022-06-12 16:40] LABS: Alanine Aminotransferase 25 U/L (12-78); Albumin Level 4.1 g/dl (3.5-5.0); Albumin/Globulin Ratio 1.8 (1.1-1.8); Alkaline Phosphatase 141 U/L (38-126); Aspartate Amino Transferase 28 U/L (14-36); Blood Urea Nitrogen 14 mg/dl (7-17); Calcium 9.2 mg/dl (8.4-10.2); Carbon Dioxide 25 mmol/L (22.0-30.0); Chloride 105 mmol/L (98-107); Creatinine Clearance Estimated 69 mL/min (50-200); Estimated Glomerular Filt Rate 100 ml/min (>60); GFR (African American) 121 ML/MIN (>60); Globulin 2.3 g/dL (1.3-3.2); Glucose 105 mg/dl (74-100); Sodium 138 mmol/L (136-145); Total Protein,Serum 6.4 g/dl (6.3-8.2)
[2022-06-12 16:41] LABS: Bilirubin,Total 0.1 mg/dl (0.2-1.3); Ethyl Alcohol < 10 mg/dl (0-10)
[2022-06-12 16:42] LABS: Activated Partial Thrombo Time 25.5 seconds (22.8-30.6); INR 0.93 (0.9-1.1); Prothrombin Time 10.1 seconds (10.1-12.5)
[2022-06-12 17:33] VITALS: BP 283/89; PULSE 74; RESP 20; O2SAT 96
[2022-06-12 18:00] VITALS: BP 187/109; PULSE 63; RESP 20; O2SAT 98
[2022-06-12 18:30] VITALS: BP 193/96; PULSE 67; RESP 20; O2SAT 98
--- NOTE | 2022-06-12 18:39 | PC.NURSE ---
pt ambulated to bathroom
[2022-06-12 18:56] VITALS: BP 180/84; PULSE 62; RESP 20; TEMP 36.8; O2SAT 99
== END 2022-06-12 19:12 | disposition home or self-care (01) ==
PROVIDERS: Emergency Provider Student in an Organized Health Care Education/Training Program; PCP Internal Medicine
DX: R07.9 Chest pain, unspecified (principal); R10.9 Unspecified abdominal pain; M79.602 Pain in left arm; M25.552 Pain in left hip; M25.551 Pain in right hip; R11.0 Nausea; I11.0 Hypertensive heart disease with heart failure; I50.9 Heart failure, unspecified; M19.90 Unspecified osteoarthritis, unspecified site; Z79.1 Long term (current) use of non-steroidal anti-inflammatories (NSAID); Z79.899 Other long term (current) drug therapy; Z88.8 Allergy status to other drugs, medicaments and biological substances; Z87.442 Personal history of urinary calculi; Z85.9 Personal history of malignant neoplasm, unspecified; Z92.21 Personal history of antineoplastic chemotherapy; Z92.3 Personal history of irradiation; Z80.9 Family history of malignant neoplasm, unspecified; Z83.3 Family history of diabetes mellitus; V42.5XXA Car driver injured in collision with two- or three-wheeled motor vehicle in traffic accident, initial encounter
CPT/HCPCS: 70450; 70496; 70498; 71045; 71275; 72125; 72128; 72131; 72170; 73090; 74174; 80053; 85025; 85610; 85730; 96361; 96374; 96375; 96376; 99285; J2405; Q9967

== ENCOUNTER 2023-08-21 12:01 | Outpatient (CLI) | payer MEDICARE, OTHER, SELFPAY ==
[2023-08-21 13:31] LABS: Alanine Aminotransferase 25 U/L (12-78); Albumin Level 4.1 g/dl (3.5-5.0); Alkaline Phosphatase 144 U/L (38-126); Aspartate Amino Transferase 27 U/L (14-36); Bilirubin,Indirect 0.4 mg/dL (0.0-0.9); Bilirubin,Total 0.4 mg/dl (0.2-1.3); Bilirubin,Unconjugated 0.3 mg/dL (0.0-1.1); Total Protein,Serum 6.2 g/dl (6.3-8.2)
== END 2023-08-21 23:59 ==
LOC: LAB 12:02
PROVIDERS: PCP Internal Medicine; Visit Provider Nurse Practitioner
DX: B35.1 Tinea unguium (principal); S91.102A Unspecified open wound of left great toe without damage to nail, initial encounter
CPT/HCPCS: 36415; 80076; 87102; 87206; 87220

== ENCOUNTER 2024-09-03 11:37 | Outpatient (CLI) | payer MEDICARE, OTHER, SELFPAY ==
[2024-09-03 12:08] LABS: Hemoglobin A1C 5.8 % (4.0-6.0)
[2024-09-03 12:17] LABS: Albumin Level 3.8 g/dl (3.5-5.0)
[2024-09-03 12:20] LABS: Alanine Aminotransferase 25 U/L (12-78); Alkaline Phosphatase 159 U/L (38-126); Aspartate Amino Transferase 24 U/L (14-36); Bilirubin,Unconjugated 0.2 mg/dL (0.0-1.1)
[2024-09-03 12:21] LABS: Bilirubin,Indirect 0.1 mg/dL (0.0-0.9); Bilirubin,Total 0.1 mg/dl (0.2-1.3)
== END 2024-09-03 23:59 | disposition home or self-care (01) ==
LOC: LAB 11:38
PROVIDERS: PCP Internal Medicine; Visit Provider Nurse Practitioner
DX: E11.9 Type 2 diabetes mellitus without complications (principal)
CPT/HCPCS: 36415; 80076; 83036